=== PATIENT | female | born 1985 | race Caucasian/White ===

== ENCOUNTER 2017-07-22 02:20 | Observation (INO) ==
--- OUTSIDE RECORDS SUMMARY | 2017-07-22 02:43 | External Medical Summary | Continuity of Care Document ---
:1985 [facility] Allerg[facility] Active Description Code Type Severity Reaction Onset Reported/ Identified Relationship Clinical to Patient Status Yes No Known NKA MED N/A N/A 07/22/2016 Allergies Yes No Known No Drug Unknown N/A 05/02/2017 Allergies Known Aller Aller gy gies Medications Medication Packaging Start Date Stop Date Route Dosage Sig UD 07/22/2016 10/21/2016 ORAL 20MG Viibryd 20 MG Oral Tablet Take 1 po daily in the am. with food. UD 02/03/2017 04/05/2017 ORAL 50MG Zoloft 50 MG Oral Tablet TAKE 1 TABLET DAILY. 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, unspecified 06/06/2016 F F33.1 Major depressive Marlene, Malgorzata disorder, recurrent, Aleyda moderate 06/06/2016 F 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 situational [place], Malgorzata type phobia Laeyda 06/06/2016 F F41.0 Panic disorder Marlene, Malgorzata [episodic paroxysmal Aleyda anxiety] without agoraphobia 06/06/2016 F F41.1 Generalized anxiety Marlene, Malgorzata disorder Aleyda 06/06/2016 F 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, Malgorzata hyperactivity Aleyda disorder, predominantly inattentive type 06/06/2016 F Z56.0 Unemployment, [place], Malgorzata unspecified Aleyda 06/06/2016 F Z59.5 Extreme poverty Marlene, Malgorzata Aleyda 06/06/2016 F Z91.5 Personal history of [place], Malgorzata self-harm Aleyda 06/12/2016 F 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 06/12/2016 F F41.1 Generalized anxiety disorder 06/14/2016 F F33.1 Major depressive disorder, recurrent, moderate 06/14/2016 F 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, 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, unspecified 06/14/2016 F F33.1 Major depressive Marlene, Malgorzata disorder, recurrent, Aleyda moderate 06/14/2016 F 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 situational Marlene, Malgorzata type phobia Aleyda 06/14/2016 F F41.0 Panic disorder Marlene, Malgorzata [episodic paroxysmal Aleyda anxiety] without agoraphobia 06/14/2016 F F41.1 Generalized anxiety Marlene, Malgorzata disorder Aleyda 06/14/2016 F 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, Malgorzata hyperactivity Aleyda disorder, predominantly inattentive type 06/14/2016 F Z56.0 Unemployment, [place], Malgorzata unspecified Aleyda 06/14/2016 F Z59.5 Extreme poverty Marlene, Malgorzata Aleyda 06/14/2016 F Z91.5 Personal history of Marlene, Malgorzata self-harm Aleyda 06/18/2016 F 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 06/18/2016 F F41.1 Generalized anxiety disorder 06/20/2016 F F33.1 Major depressive disorder, recurrent, moderate 07/15/2016 F F33.1 Major depressive Doe, Sonia disorder, recurrent, L moderate 07/15/2016 F 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 situational Doe, Sonia type phobia L 07/15/2016 F F41.1 Generalized anxiety Doe, Sonia disorder L 07/15/2016 F Z56.0 Unemployment, Doe, Sonia unspecified L 07/15/2016 F 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 situational Psy, Batch type phobia 07/15/2016 F F41.1 Generalized anxiety Psy, Batch disorder 07/15/2016 F Z56.0 Unemployment, Psy, Batch unspecified 07/19/2016 F F33.1 Major depressive Psy, Batch disorder, recurrent, moderate 07/22/2016 F F33.1 Major depressive Jaycob, Timi L disorder, recurrent, moderate 07/22/2016 F 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 situational Jaycob, Timi L type phobia 07/22/2016 F F41.1 Generalized anxiety Jaycob, Timi L disorder 07/22/2016 F Z56.0 Unemployment, JaycobTimi grover L unspecified 07/22/2016 F 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 situational Psy, Batch type phobia 07/22/2016 F F41.1 Generalized anxiety Psy, Batch disorder 07/22/2016 F Z56.0 Unemployment, Psy, Batch unspecified 07/22/2016 F F33.1 Major depressive Psy, Batch disorder, recurrent, moderate 07/22/2016 F F15.259 Other stimulant [place], 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, unspecified 07/22/2016 F F33.1 Major depressive Marlene, Malgorzata disorder, recurrent, Aleyda moderate 07/22/2016 F 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 situational [place], Malgorzata type phobia Aleyda 07/22/2016 F F41.0 Panic disorder [place], Malgorzata [episodic paroxysmal Aleyda anxiety] without agoraphobia 07/22/2016 F F41.1 Generalized anxiety [place], Malgorzata disorder Aleyda 07/22/2016 F 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, Malgorzata hyperactivity Aleyda disorder, predominantly inattentive type 07/22/2016 F Z56.0 Unemployment, Marlene, Malgorzata unspecified Aleyda 07/22/2016 F Z59.5 Extreme poverty [place], Malgorzata Aleyda 07/22/2016 F Z91.5 Personal history of Marlene, Malgorzata self-harm Aleyda 02/03/2017 F F33.1 Major depressive West, Payton M disorder, recurrent, moderate 02/03/2017 F 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 situational West, Payton M type phobia 02/03/2017 F F41.1 Generalized anxiety West, Payton M disorder 02/03/2017 F Z56.0 Unemployment, West, Payton M unspecified 02/03/2017 F 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 situational Psy, Batch type phobia 02/03/2017 F F41.1 Generalized anxiety Psy, Batch disorder 02/03/2017 F Z56.0 Unemployment, Psy, Batch unspecified 02/03/2017 F F33.1 Major depressive Psy, Batch disorder, recurrent, moderate 02/03/2017 F 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, 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, unspecified 02/03/2017 F F33.1 Major depressive [place], Malgorzata disorder, recurrent, Aleyda moderate 02/03/2017 F 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 situational [place], Malgorzata type phobia Aleyda 02/03/2017 F F41.0 Panic disorder [place], Malgorzata [episodic paroxysmal Aleyda anxiety] without agoraphobia 02/03/2017 F F41.1 Generalized anxiety Marlene, Malgorzata disorder Aleyda 02/03/2017 F 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, Malgorzata hyperactivity Aleyda disorder, predominantly inattentive type 02/03/2017 F Z56.0 Unemployment, Marlene, Malgorzata unspecified Aleyda 02/03/2017 F Z59.5 Extreme poverty [place], Malgorzata Aleyda 02/03/2017 F Z91.5 Personal history of Marleen, Malgorzata self-harm Aleyda Procedures Code Description Performed By Performed On Marlene, Malgorzata Aleyda 06/06/2016 [id number] Marlene, Malgorzata Aleyda 06/06/2016 [id number] Oscar Velasco Avinash 06/12/2016 [id number] Oscar Velasco 06/12/2016 [id number] Oscar Velasco Avinash 06/18/2016 [id number] Oscar Velasco 07/15/2016 [id number] Oscar Velasco Avinash 07/15/2016 [id number] Kenia Gore 07/22/2016 [id number] OFFICE/OUTPATIENT VISIT, Kenia Sanders 07/22/2016 [id number] OFFICE/OUTPATIENT VISIT, Iman Cardenas 02/03/2017 [id number] OFFICE/OUTPATIENT VISIT, Iman Kimbrough 02/03/2017 [id number] OFFICE/OUTPATIENT VISIT, JAMIE Dixon ACCT No. Visit Discharge Status Pt. Type Provider Facility Loc./Unit Complaint Date/Time [id number] 02/03/2017 02/03/2017 CLS Unknown 08:20:00 23:59:59 [id number] 05/02/2017 05/02/2017 DIS Emergency Gerard Jesus Duran2WOBED 38 14:24:00 18:13:00 , [facility] [id number] 09/23/2016 09/23/2016 DIS Emergency Victor Manuelfadi Jesus DuranED 46 14:56:00 16:41:00 , [facility] [id number] 02/16/2016 02/16/2016 DIS Emergency Cindy DuranED 42 20:35:00 21:05:[address] , [facility]
--- OUTSIDE RECORDS SUMMARY | 2017-07-22 02:43 | External Medical Summary | Clinical Summary ---
:1985 External Reference #:[place] Patient #: [id number] Author Name FABIÁN Drug Allergies and Adverse Reactions SNOMED Substance Substance Reaction Severity Date Date Status Allergy RxNorm code Identified Resolved Type Code Problems SNOMED CT Problem Onset Date Ended Date Status Medications RxNorm Medication Began Ended Dosage Frequency Route Units Status Code Azithromycin 1 02/09/20 Active gm p.o. as a 14 single dose azithromycin 1 03/02/20 Active gm po 14 DepoProvera 150 03/21/20 Active mg IM q 12 15 weeks Lexapro 20mg 05/20/20 Active daily 15 Diagnostic Results Lab Results LOINC Code Lab Test Result Abnormal Completed Date URINE HCG POSITIVE[0] Y 12/08/2012 RPR NONREACTIVE[0] N 02/08/2014 URINE HCG NEGATIVE[0] N 02/08/2014 CHLAMYDIA POSITIVE[0] Y 02/09/2014 GONORRHEA NEGATIVE[0] N 02/09/2014 HIV - KDHE NON-REACTIVE[0] N 02/09/2014 URINE HCG POSITIVE[0] Y 03/02/2014 RPR NON-REACTIVE[0] N 03/21/2015 URINE HCG NEGATIVE[0] N 03/21/2015 CHLAMYDIA NEGATIVE[0] N 03/23/2015 GONORRHEA NEGATIVE[0] N 03/23/2015 HIV - KDHE NON-REACTIVE[0] N 03/23/2015 Encounters Date Location Type 02/21/2009 [facility] 12/08/2012 [facility] - [facility]/02[facility] 03/21/2015 [facility] 07/10/2015 [facility][FP DR[facility] - [facility]] [facility]INIC Vital Signs Date Height(cm) Weight(kg) Head BP-Systolic BP-Diastolic Temperature(C) Respiration Heart Oxygen(%) Circ(cm) Beat 03/21 160.02 [id number] 146 908 07/10 160.02 [id number] 118 199
--- OUTSIDE RECORDS SUMMARY | 2017-07-22 02:43 | External Medical Summary | Referral Summary ---
:1985 Author Organization [facility] Address [address] [place] [address] Encounter VC Date(s): 11/12/16 - 11/12/16 [facility] [address] [place] [address] - us Discharge Diagnosis: Acute UTI Discharge Disposition: 01-Home or Self Care Attending Physician: [facility], [facility]mediate [facility] Attending Physician: Belinda Rucker APRN Admitting Physician: Provider, [facility] Vital Signs Most recent to oldest [Reference Range]: 1 Temperature Oral [35.8-37.3 degC] 36.3 degC (11/12/16 2:33 PM) Peripheral Pulse Rate [60-100 bpm] 94 bpm (11/12/16 2:33 PM) Blood Pressure [90-140/60-90 mmHg] 110/60 mmHg (11/12/16 2:33 PM) SpO2 97 % (11/12/16 2:33 PM) Problem List No data available for this section Allergies, Adverse Reactions, Alerts No Known Medication Allergies Medications Macrobid 100 mg oral capsule 100 mg 1 caps, Oral, BID, X 7 days, # 14 caps, 0 Refill(s), Pharmacy: [id number], 1 caps Oral BID,x7 days Start Date: 11/12/16 Stop Date: 11/19/16 Status: Ordered Results No data available for this section Immunizations No data available for this section Procedures No data available for this section Social History Social History Type Response Smoking Status Current every day smoker Assessment and Plan Extracted from: Title: Office Visit Note Author: Belinda Rucker APRN Date: 11/12/16 Assessment/Plan Note given to mom for work. 1.Acute UTI Urine showed Luis Angel, Nit, Blood present. Treated with Macrobid. Pt to follow up with primary care doctor as needed. Drink plenty of fluids, rest, practice good hand hygiene. Tylenol/Ibuprofen as needed for fever or pain. If you were prescribed an antibiotic, please take all of your medication. Please take all of your antibiotic if it was prescribed. FU with PCP in 2 to 5 days as needed. If you develop worsening symptoms, please come back to be re-evaluated, or if it is an emergency, please call 911. Ordered: nitrofurantoin, 100 mg 1 caps, Oral, BID, X 7 days, # 14 caps, 0 Refill(s) , [id number], 1 caps Oral BID,x7 days Office Visit Level 3 Est [id number]
--- OUTSIDE RECORDS SUMMARY | 2017-07-22 02:43 | External Medical Summary ---
:1985 Author Organization [employer] Care Team Providers Name Role Phone Laure White Provider Role Unavailable Allergies No Known Allergies Problems No Known Problems Medications Medication Code System Code Instructions Start Date End Date Status Dosage Flagyl [facility] [address] 500 MG Orally BID Nov 06, Nov 13, 1 tablet -2015 Results No Known Results Summary Purpose eClinicalWorks Submission
--- OUTSIDE RECORDS SUMMARY | 2017-07-22 02:43 | External Medical Summary ---
:1985 Author Organization [employer] Care Team Providers Name Role Phone Laure White Provider Role Unavailable Allergies No Known Allergies Problems No Known Problems Medications Medication Code System Code Instructions Start Date End Date Status Dosage Flagyl [facility] [address] 500 MG Orally. NO Nov 03, Nov 10, 1 tablet -31 ALCOHOL WHILE 2015 2015 TAKING THIS MEDICATION BID Results No Known Results Summary Purpose eClinicalWorks Submission
[2017-07-22] MEDS ORDERED: LR 1,000 ML IV SCH (02:45)
[2017-07-22] MEDS ORDERED: NALBUPHINE 10 MG/ML INJECTION IVP PRN (02:46)
--- NOTE | 2017-07-22 03:58 | Labor and Delivery Note ---
- Labor and Delivery Labor and Delivery: 32 yo at 36 weeks 4 days EGA, JEREMY 08/15/17, presents with sudden onset of RUQ pain at 0200. Pain spontaneously improved after iv fluid. Last ate (popcorn ) around 2200. complicated by methamphetamine use. Pt is in [facility] in [place] but sees Dr Villanueva for PNC. Reports uncomplicated otherwise. States she has been for regular visits through . She states last methamphetamine use was 5 days ago. PNV since, no other meds. FHTs reactive Abd-gravid, NT uterus, tender RUQ to palpation Cervix-FT/thick/ballotable per RN CBC normal CMP shows elevated liver enzymes. Will plan US of gallbladder when NPO x 8 hours, repeat hepatic enzymes. Reviewed with pt. Q&A
--- NOTE | 2017-07-22 07:46 | Discharge Instructions ---
Discharge Plan - Med Rec/Dispo Prescriptions: Continue Vitamin Tab [Wade ] 1 tab PO DAILY No Action diphenhydrAMINE HCl [Benadryl] 25 mg PO PRN PRN PRN Reason: Anxiety/Sleep Melatonin Tab [Melatonin] 1 mg PO PRN PRN PRN Reason: Sleep
--- NOTE | 2017-07-22 08:04 | Ultrasound Report ---
Indication: RUQ pain third trimester PROCEDURE: US gall bladder: Encounter: Initial Comparison: None Technique: Grayscale and color Doppler sonographic imaging of the right upper quadrant of the abdomen was performed. Findings: Hepatic parenchyma is homogeneous without evidence for focal mass. The gallbladder shows a shadowing mobile gallstone without wall thickening or pericholecystic fluid. Sonographic Reina's sign was reportedly positive. Both the intra and extrahepatic biliary system are of normal caliber with the common duct measuring 3 mm in dimension. Visualized portions of the head and body of the pancreas are unremarkable. The right kidney is present without collecting system dilatation. The right kidney measures 10.4 cm in length. Impression: Cholelithiasis with a positive sonographic Reina's sign is equivocal for acute cholecystitis. Recommend surgical evaluation. .
[2017-07-22 10:35] VITALS: TEMP 97.6
[2017-07-22 10:39] VITALS: BP 136/89; PULSE 86; RESP 18; BMI 27.2
== END 2017-07-22 10:30 | disposition home or self-care (01) ==
LOC: MC 02:20 → OBOBS 02:20 → MC 02:39
PROVIDERS: ADMIT Obstetrics & Gynecology; ATTEND Obstetrics & Gynecology